=== PATIENT | male | born 1960 | race Caucasian/White ===

== ENCOUNTER 2023-01-04 07:56 | Day surgery (SDC) | payer BC, SELFPAY ==
[2023-01-04] VITALS (10 sets, daily range): BP systolic 107–156; BP diastolic 79–98; PULSE 58–86; RESP 12–16; TEMP 36.5–37.1; O2SAT 95–100; BMI 32.8
[2023-01-04] MEDS: LACTATED RINGERS 1000 ML 1,000 ML 100 ML IV (08:10)
--- NOTE | 2023-01-04 08:51 | SUR.PREOP ---
PT was here with patient and educated on mobility post surgery. Crutches given. Assessed for safety at home post surgery. Pt felt it was safe for PT to go home
--- NOTE | 2023-01-04 09:13 | SUR.PREOP ---
Covid test negative
[2023-01-04] MEDS: SODIUM CHLORIDE 0.9 % (FLUSH) 10 ML SYRINGE IVF (09:14)
[2023-01-04] MEDS: CEFAZOLIN 2 GM INJ IVP (11:21)
[2023-01-04] MEDS: BUPIVACAINE 0.25% 30 ML INJECTION (12:08)
--- NOTE | 2023-01-04 12:08 | PM.ORPRC ---
Procedure Note Date of procedure: 01/04/23 Procedure: PREOPERATIVE DIAGNOSIS: Left knee medial meniscus root tear, patellofemoral osteoarthritis POSTOPERATIVE DIAGNOSIS: Left knee medial meniscus root tear, patellofemoral osteoarthritis, complete tear of the ACL NAME OF OPERATION: Left knee arthroscopic ACL debridement, patellofemoral chondroplasty SURGEON: Joel Motta MD ASSEMBLER SEAT: MELCHOR Jaffe ANESTHESIA: Spinal ESTIMATED BLOOD LOSS: 0 mL COMPLICATIONS: None SPECIMENS: None DRAINS: None PREOPERATIVE ANTIBIOTICS: Ancef 2 gram INDICATIONS: The patient is a 62-year-old with a history of left knee medial pain. MRI scan is consistent with a medial meniscus root tear and end intrasubstance ganglion in the ACL, with patellofemoral joint osteoarthritis. Despite appropriate nonoperative management, including activity modification, antiinflammatories, dphc-tiv-rqrnaxo pain medication, bracing, physical therapy, and injections they continue to have pain and disability. Operative intervention was offered. The risks, benefits and expected outcomes were discussed in detail. These included but were not limited to: Infection, bleeding, injury to blood vessel or nerve, venous thromboembolism. All questions were answered to their satisfaction. PROCEDURE: Spinal anesthesia was administered. The patient was placed supine on the operating room table. The left lower extremity was prepped and draped in the usual sterile fashion. The limb was exsanguinated with the Bonilla bandage. The pneumatic tourniquet was inflated to 300 mmHg. A standard anterolateral portal was established. The arthroscope was introduced. The working portal was established anteromedially. Diagnostic arthroscopy was performed with findings as follows: The suprapatellar pouch is normal. Articular surface on the patella shows diffuse grade 1/2 change. Articular surface on the trochlea shows diffuse grade 3 change with a small area of grade 4 change medially, just proximal to the notch. The medial gutter is normal. The medial compartment shows diffuse grade 1/2 change on the medial femoral condyle, grade 1/2 change on the medial tibial plateau. The medial meniscus has a radial tear, just off the root, from the leading edge to the capsule, detaching it from the tibia. The notch shows the ACL to be completely torn and markedly degenerative. There are several unstable fragments of ligament flipped into the notch and into the lateral compartment. The lateral compartment shows normal articular cartilage on the lateral femoral condyle and lateral tibial plateau. The lateral meniscus is normal. The lateral gutter is normal. The ACL was debrided with the shaver. This results in complete resection of the ligament. Unstable chondral flaps on the femoral trochlea and patella were debrided with the shaver, taken to a stable base. Since a complete tear of the ACL was unanticipated, we elected not to proceed with medial meniscus root repair. Arthroscopic instruments were removed, the portal sites were Steri-Stripped closed, the knee was infiltrated with 30 mL of 0.25% Marcaine without epinephrine. A dry dressing was applied, the tourniquet was released. Sponge and needle counts were correct x 2. The patient tolerated the procedure well. There were no apparent complications. They were carefully transferred to the hospital bed and taken to the postanesthesia care unit in satisfactory condition. PLAN: The patient will be discharged to home. They may weightbear as tolerates. Range of motion will be unrestricted. They will follow up in the office next week for a wound check. I spoke with his sisters Gi and Amy postoperatively. I explained to them that complete tear of his ACL was unanticipated. I told them that he may have had another injury to his knee since the initial MRI scan. Given this finding, root repair without ACL reconstruction is doomed to failure. Since he signed his own consent, I was not able to proceed with ACL reconstruction under this anesthetic. Therefore, we elected to discontinue the case. We will allow him to return to activity as his knee will allow. If he has pain and/or functional instability we will consider ACL reconstruction with medial meniscus root repair. If his knee feels and functions well, then obviously no further intervention will be necessary.
--- NOTE | 2023-01-04 12:23 | W.ANESCHARGE ---
Anesthesia Charges Start Date/Time Anesthesia Start Date: 01/04/23 Anesthesia Start Time: 11:03 Stop Date/Time Anesthesia Stop Date: 01/04/23 Anesthesia Stop Time: 12:20
== END 2023-01-04 13:44 | disposition home or self-care (01) ==
PROVIDERS: PCP Family Medicine; Visit Provider Orthopaedic Surgery
PROC: (CPT 29882; principal; 2023-01-04 09:45)
DX: M23.232 Derangement of other medial meniscus due to old tear or injury, left knee (principal); M17.12 Unilateral primary osteoarthritis, left knee; S83.512A Sprain of anterior cruciate ligament of left knee, initial encounter
CPT/HCPCS: 29877; 01400; 97116; 97161; J0690; J2250; J2370; J2704; J3010; J3490; J7120

== ENCOUNTER 2023-03-19 14:57 | Outpatient (CLI) | payer BC, SELFPAY ==
--- NOTE | 2023-03-19 15:30 | MR_ITS ---
[address] [address] Phone:?[phone] Fax:?[phone] Referring Physician Information: Joel Motta M.D. [id number] [facility] [address] Phone:?[phone] Fax:?[phone] Patient:Adelaida Hutson D.O.B:?1960 Sex:?Male Phone:?[phone] [facility] MRN:?[id number] Exam Date:?03/19/2023 EXAM: MRI of the RIGHT KNEE, without contrast CLINICAL: Right knee instability. COMPARISONS: X-rays dated 11/02/2022. TECHNICAL: Multiplanar multisequence MRI of the right knee was obtained. SEDATION: None. CONTRAST: None. FINDINGS: Ligaments: ACL: Not visualized consistent with sequelae of prior disruption. PCL: Irregularity and increased signal consistent with sequelae of prior sprain injury, without complete disruption. MCL: Intact and unremarkable. LCL: Intact and unremarkable. Posterolateral corner: Popliteus, biceps femoris, iliotibial band, and the popliteofibular ligament appear intact. Posteromedial corner: Semimembranosus, pes anserine tendons and posterior oblique ligament appear intact. Extensor mechanism: Patellar tendon: Intact, without tendinopathy. Quadriceps tendon: Intact, without tendinopathy. Retinacula: Medial and lateral retinacula are intact. Fat pads: Unremarkable infrapatellar Hoffa's, quadriceps and prefemoral fat pads. Patellofemoral joint: Patella: Focal deep chondral fissure involving the peripheral medial patellar facet on axial series 4 image 10 with mild chondral thinning involving the medial patellar facet. Trochlea: Small segment of high-grade chondral loss with associated small osteophyte formation involving the inferior medial trochlea on sagittal series 6 image 19. Medial compartment: Medial meniscus: There is marked attenuation with high-grade complex tearing involving the posterior root extending into the posterior horn on sagittal series 6 images 18-20. Ill-defined complex tearing involves the remainder of the posterior horn extending into the body segment. Approximately 4 mm of medial extrusion of the peripheral body segment meniscus into the medial gutter. Medial cartilage: There is high-grade/full-thickness chondral loss involving the weightbearing extending into the posterior nonweightbearing medial femoral condyle with underlying subchondral reactive edema. High-grade/full-thickness chondral loss also involves the peripheral and posterior medial tibial plateau with underlying subchondral marrow edema. Lateral compartment: Lateral meniscus: There is complex tearing throughout the entire lateral meniscus with attenuation of the anterior and posterior root fibers. Lateral cartilage: Grade 2-3 chondral thinning involves the weightbearing lateral femoral condyle. There is high-grade/full-thickness chondral loss involving the posterior lateral tibial plateau adjacent to the posterior horn lateral meniscus on sagittal series 6 image 10-11 with mild adjacent subchondral marrow edema. High-grade/full-thickness loss also involves the medial aspect of the lateral tibial plateau with adjacent subchondral marrow edema. Knee joint: Effusion: Moderate right knee effusion. Intra-articular bodies:?Small intra-articular body is present within the posterior joint recess adjacent to the PCL measuring approximately 7 mm in size as seen on coronal series 8 image 21. Popliteal cyst: Moderate sized popliteal cyst is present with internal loose bodies present. Bones: No suspicious bone marrow signal alteration or fracture line. There is scattered degenerative peripheral spurring seen to involve all 3 compartments of the knee. IMPRESSION: 1. ACL is not visualized consistent with sequelae of prior disruption. Sequelae of prior sprain injury involving the PCL also noted. 2. Tearing of the medial and lateral menisci as above, with medial extrusion of the peripheral body segment medial meniscus into the medial gutter. 3. Tricompartmental chondromalacia/chondral loss as above. 4. Moderate joint effusion with a small intra-articular body within the posterior joint recess adjacent to the PCL. 5. Moderate-sized popliteal cyst with internal loose bodies. JCZ Electronically signed on 03/26/2023 10:11:00 AM by Fede Choi D.O.
== END 2023-03-19 14:58 | disposition home or self-care (01) ==
LOC: MRI 14:57
PROVIDERS: PCP Family Medicine; Visit Provider Orthopaedic Surgery
DX: M25.561 Pain in right knee (principal); M94.261 Chondromalacia, right knee; S83.281D Other tear of lateral meniscus, current injury, right knee, subsequent encounter; S83.221D Peripheral tear of medial meniscus, current injury, right knee, subsequent encounter; M25.461 Effusion, right knee; M71.21 Synovial cyst of popliteal space [Baker], right knee; M23.51 Chronic instability of knee, right knee
CPT/HCPCS: 73721

== ENCOUNTER 2023-05-31 12:52 | Outpatient (RCR) | payer BC, SELFPAY | END 2023-09-28 23:59 | disposition home or self-care (01) | PROVIDERS: PCP Family Medicine; Visit Provider Orthopaedic Surgery | DX: M17.11 Unilateral primary osteoarthritis, right knee (principal); M25.361 Other instability, right knee; Z51.89 Encounter for other specified aftercare; M25.561 Pain in right knee; M25.661 Stiffness of right knee, not elsewhere classified | CPT/HCPCS: 97110; 97161; 97530 ==

== ENCOUNTER 2023-06-13 06:11 | Day surgery (SDC) | payer BC, SELFPAY ==
[2023-06-13] VITALS (22 sets, daily range): BP systolic 95–141; BP diastolic 68–98; PULSE 59–80; RESP 12–18; TEMP 35.9–36.8; O2SAT 94–100; BMI 31.6
[2023-06-13] MEDS: ACETAMINOPHEN 500 MG TABLET 1000 MG PO ×3 (06:40→18:30)
[2023-06-13] MEDS: CELECOXIB 200 MG CAPSULE PO (06:40)
[2023-06-13] MEDS: OXYCODONE (CR) 10 MG TAB.ER.12H PO (06:40)
[2023-06-13] MEDS: LACTATED RINGERS 1000 ML 1,000 ML 100 ML IV ×2 (06:55→07:30)
[2023-06-13] MEDS: fentaNYL 100 MCG/2 ML inj IVP (07:25)
[2023-06-13] MEDS: MIDAZOLAM HCL 1 MG/ML inj IVP (07:25)
--- NOTE | 2023-06-13 07:32 | SUR.PREOP ---
TIME?OUT:?0725 PT/RN/MDA?VERIFICATION?OF?SURGICAL?SITE,?PROCEDURE,?AND?CONSENT OBTAINED?PRIOR?TO?INVASIVE?PROCEDURE.
[2023-06-13] MEDS: CEFAZOLIN 2 GM INJ IVP (07:52)
--- NOTE | 2023-06-13 09:00 | CRLHL7_ITS ---
For Patients: As a result of the Cures Act, medical imaging exams and procedure reports are released immediately into your electronic medical record. You may view this report before your referring provider. If you have questions, please contact your health care provider. Indication: POST OP TKA Technique: Two views right knee Findings/Impression: Hardware from a right total knee arthroplasty is in satisfactory position. Bone alignment is normal. No sign of acute fracture. Postop changes are within normal limits. Dictated by Mirza Maxwell MD @ 06/13/2023 11:02:39 AM (Electronically Signed)
--- NOTE | 2023-06-13 09:02 | PM.ORPRC ---
Procedure Note Date of procedure: 06/13/23 Procedure: PREOPERATIVE DIAGNOSIS: Right knee osteoarthritis POSTOPERATIVE DIAGNOSIS: Right knee osteoarthritis NAME OF OPERATION: Right total knee arthroplasty SURGEON: Joel Motta MD CANDY WRAPPING MACHINE OPERATOR: Sylvia Natarajan PA-C ANESTHESIA: Spinal ESTIMATED BLOOD LOSS: 0 mL COMPLICATIONS: None SPECIMENS: None DRAINS: None PREOPERATIVE ANTIBIOTICS: Ancef 2 grams IMPLANTS: 1. J&J Attune # 5 posterior stabilized femur 2. # 5 fixed-bearing tibia 3. # 5 posterior stabilized, 5 mm fixed-bearing polyethylene 4. 38 patella INDICATIONS: The patient is a 62-year-old with a longstanding history of severe, unrelenting right knee pain secondary to end-stage (grade IV) right knee osteoarthritis. Despite appropriate nonoperative management, including activity modification, anti-inflammatories, hldz-evf-xuhiruh pain medication, bracing, physical therapy, and injections they continue to have pain and disability. Operative intervention was offered. The risks, benefits and expected outcomes were discussed in detail. These included but were not limited to: Infection, bleeding, injury to blood vessel or nerve, venous thromboembolism. All questions were answered to their satisfaction. Use of an delinquent tax collection assistant was necessary throughout the case for patient positioning and safety, soft tissue retraction, and closure. PROCEDURE: Spinal anesthesia was administered. The patient was placed supine on the operating table. The delinquent tax collection assistant made sure the patient was positioned appropriately. The lower extremity was prepped and draped in the usual sterile fashion. The limb was exsanguinated with the Bonilla bandage. The pneumatic tourniquet was inflated to 300 mmHg. A standard anterior incision was made with the knee in flexion. Subcutaneous dissection was sharply taken through fascial layer #1. Full-thickness medial and lateral flaps were elevated. The delinquent tax collection assistant retracted the soft tissues and protected them throughout the case. A standard medial parapatellar approach was made. The patella was everted. The infrapatellar fat pad was preserved. The menisci and cruciate ligaments were sharply d?brided. Marginal osteophytes were d?brided with the rongeur. The drill was used to penetrate the femoral canal. The canal was aspirated and irrigated with pulse lavage. The intramedullary femoral guide was placed for a 5-degree valgus cut, removing 10 mm off the distal femur. The saw was used to make the cut. Whitesides line and the trans epicondylar axis were marked. The femoral sizing guide was pinned onto the distal femur. Three degrees of external rotation nicely parallels the transepicondylar axis. Pins were placed for posterior referencing. The four-in-one cutting guide was pinned onto the distal femur. The anterior, posterior, and chamfer cuts were made. The delinquent tax collection assistant protected the collateral ligaments. The box cutting guide was pinned. The box cuts were made. The boxed trial was placed and was an excellent fit. Drill holes for the lugs were made. Attention was then turned to the proximal tibia. The extramedullary tibial guide was placed for a neutral varus/valgus cut with 5 degrees of posterior slope, removing 2 mm based off the medial tibial surface. The delinquent tax collection assistant protected the collateral ligaments and the neurovascular bundle. The saw was used to make the cut. Trial components were placed. The knee was nicely balanced in both flexion and extension. The trial components were removed. The tray was placed in appropriate rotation, parallel to our tibial cutting pins. It was pinned by the delinquent tax collection assistant and the drill and the punch were used. The tray was removed. The punch was used again. We placed a bone plug in the femoral canal. Attention was then turned to the patella. [place] patellar thickness was 23 mm. The lobster claw resection guide was used with the 9.5 mm dick. The saw was used to make the cut. Drill holes were made by the delinquent tax collection assistant. The trial was placed and was an excellent fit. Cancellous surfaces were irrigated with pulse lavage and thoroughly dried by the delinquent tax collection assistant. We cemented the tibial component, then the femoral component. We impacted the 5 mm polyethylene onto the tibial tray. The knee was brought into full extension. We then cemented the patellar component. Excessive cement was removed. The cement was allowed to harden. The knee was taken through a range of motion and was found to be nicely balanced in both flexion and extension. The patella tracks centrally. The delinquent tax collection assistant did a three minute dilute Betadine solution soak. The delinquent tax collection assistant irrigated the wound with 3 liters of normal saline via pulse lavage. The delinquent tax collection assistant reapproximated the extensor mechanism with #1 Vicryl in an interrupted [id number] fashion. The delinquent tax collection assistant then ran the extensor mechanism with a #1 PDO Stratafix. The delinquent tax collection assistant closed the subcutaneous tissues with a 3-0 Stratafix and the skin with a running 3-0 Stratafix in a subcuticular fashion. Glue was used to seal the skin. The delinquent tax collection assistant placed a dry dressing, AMOR stocking, and Polar Care. Sponge and needle counts were correct x2. The patient tolerated the procedure well. There were no apparent complications. They were carefully transferred to the hospital bed and taken to the postanesthesia care unit in satisfactory condition. PLAN: The patient will be mobilized with physical therapy. Aspirin will be used for DVT prophylaxis. They will be discharged to home once medically appropriate.
--- NOTE | 2023-06-13 09:52 | W.ANESCHARGE ---
Anesthesia Charges Start Date/Time Anesthesia Start Date: 06/13/23 Anesthesia Start Time: 07:43 Stop Date/Time Anesthesia Stop Date: 06/13/23 Anesthesia Stop Time: 09:54
--- NOTE | 2023-06-13 10:07 | W.ANESCHARGE ---
Anesthesia Charges Start Date/Time Anesthesia Start Date: 06/13/23 Anesthesia Start Time: 07:43 Stop Date/Time Anesthesia Stop Date: 06/13/23 Anesthesia Stop Time: 09:54
--- NOTE | 2023-06-13 10:08 | P.NB_ITS ---
Nerve Block Nerve Block Time Seen by Provider: 07:29 Date Seen: 06/13/23 Type of block requested by surgeon for post-operative analgesia: adductor canal Side: right Time out performed: Yes Verification of patient name: Yes Verification of date of : Yes Site marking: site marked Name of person performing procedure: Magdaleno Continuous monitoring Was continuous monitoring of O2 sat, B/P, monitor car operator, recorded every 15 minutes?: Yes Procedure Checklist: sterile prep, needles and gloves Ultrasound guided. Images saved: Yes Medications given in 5ml increments after negative aspiration: Ropivicaine %: 0.5 mL: 20 Needle gauge: 20 Decadron (mg): 10 Precedex (mcg): 25 Patient tolerated procedure well: Yes Additional comments: Needle noted adjacent to nerve Block Charges Block Charge (with Pro Fee): Femoral Nerve Use of Ultrasound Machine for Block: Yes- US Guidance/pain block
--- NOTE | 2023-06-13 10:08 | P.NB_ITS ---
Nerve Block Nerve Block Time Seen by Provider: 07:29 Date Seen: 06/13/23 Type of block requested by surgeon for post-operative analgesia: geniculars Side: right Time out performed: Yes Verification of patient name: Yes Verification of date of : Yes Site marking: site marked Name of person performing procedure: Magdaleno Continuous monitoring Was continuous monitoring of O2 sat, B/P, telemetry monitor, recorded every 15 minutes?: Yes Procedure Checklist: sterile prep, needles and gloves Medications given in 5ml increments after negative aspiration: Ropivicaine %: 0.5 mL: 9 Needle gauge: 25 Patient tolerated procedure well: Yes Block Charges Block Charge (with Pro Fee): Genicular Nerve Block Use of Ultrasound Machine for Block: No
[2023-06-13] MEDS: HYDROmorphone 0.5 mg/0.5 ml inj IVP ×2 (11:36→13:13)
[2023-06-13] MEDS: OXYCODONE 5 MG TABLET PO ×3 (12:20→22:19)
[2023-06-13] MEDS: LACTATED RINGERS 1000 ML 1,000 ML 75 ML IV (12:22)
[2023-06-13] MEDS: CEFAZOLIN 2 GM in 0.9 % SODIUM CHLORIDE Mini-bag 100 ML IVPB ×2 (14:40→21:18)
[2023-06-13] MEDS: ONDANSETRON 2 MG/ML inj 4 MG IVP (15:04)
--- NOTE | 2023-06-13 15:23 | P.IMCN_ITS ---
Date of Consult Patient: Other Consult date: 06/13/23 Requesting Physician: Orthopedics Primary Care Provider: Jame Howe MD Consult Narrative Reason for consult: Status post right space TKA, assist with hypertension care Narrative: Valentino Hutson is a 62 year old man undergoes elective right total knee arthroplasty today without any complications. Trying to address the knee pain. Having some nausea and retching postop. Otherwise indicates is doing well. Review of Systems Status of ROS: Reports: 10 or more systems reviewed and unremarkable except as noted in History and below [facility] Medical History (Updated 06/13/23 @ 15:30 by Rio Duval MD) History of nausea and vomiting ?Z87.898 - Personal history of other specified conditions (ICD-10) Learning disorder ?F81.9 - Developmental disorder of scholastic skills, unspecified (ICD-10) Osteoarthritis of right knee ?M17.11 - Unilateral primary osteoarthritis, right knee (ICD-10) Tear of lateral meniscus of right knee ?S83.281A - Other tear of lateral meniscus, current injury, right knee, initial encounter (ICD-10) Tear of medial meniscus of right knee ?S83.241A - Other tear of medial meniscus, current injury, right knee, initial encounter (ICD-10) Tear of medial meniscus of left knee ?S83.242A - Other tear of medial meniscus, current injury, left knee, initial encounter (ICD-10) Sleep apnea ?G47.30 - Sleep apnea, unspecified (ICD-10) Hypertension ?I10 - Essential (primary) hypertension (ICD-10) Hyperlipidemia ?E78.5 - Hyperlipidemia, unspecified (ICD-10) Surgical History (Updated 06/13/23 @ 15:29 by Rio Duval MD) H/O arthroscopy of left knee (01/04/23) ?Z98.890 - Other specified postprocedural states (ICD-10) Family History (Updated 06/13/23 @ 15:22 by Rio Duval MD) Mother Diabetes Family/Other Myocardial infarction Social History (Updated 06/13/23 @ 15:20 by Rio Duval MD) Narrative: Single. Lives with a friend. Has worked part-time at the [employer] for the past 23 years. His sister helps him with his finances. Former smoker. Occasionally will drink an alcoholic beverage. What is your current living situation?: I presently have a place to live Problems where you live: no known problems In the past 12 months, utilities in danger of being shut off: no In the past 12 mos, have been you worried that your food would run out before you had money to buy more?: never true In the past 12 mos, the food you bought just didn't last and you didn't have money to buy more?: never true Smoking Status: Former smoker What tobacco products do you use: cigarettes Smoking quit date/years: >15 years ago Do you use any of these nicotine containing products: None Second hand tobacco smoke exposure: No How often do you have a drink containing alcohol: 2-4 times a month Alcohol type: hard liquor How many standard drinks containing alcohol do you have on a typical day: 10 or more How often do you have six or more drinks on one occasion: Monthly AUDIT-C Alcohol total score: 8 Non-prescribed substance use: denies use Caffeine: No How often does anyone, including family, friends and others, physically hurt you : never How often does anyone, including family, friends and others, insult or talk down to you: never How often does anyone, including family, friends and others, threaten you with harm: never How often does anyone, including family, friends and others, scream or curse at you: never service: No Meds Home Medications and Allergies Home Medications Medication Instructions Recorded Confirmed Type amlodipine 5 mg tablet 5 mg PO DAILY 06/13/23 06/13/23 History simvastatin 20 mg tablet 20 mg PO QPM 06/13/23 06/13/23 History valsartan 80 1 tab PO DAILY 06/13/23 06/13/23 History mg-hydrochlorothiazide 12.5 mg tablet Allergies Allergy/AdvReac Type Severity Reaction Status Date / Time No Known Drug Allergies Allergy Verified 06/13/23 06:13 Exam Narrative: Exam Narrative: I examine him in his hospital room. Appears comfortable and in no acute distress. Vision and hearing are both grossly normal. Alert, oriented to self, place, time, situation. Friendly, cooperative. Mood and affect are congruent. Neck is supple. Midline trachea. No JVD or hepatojugular reflux. No carotid bruits. Lungs are clear to auscultation without wheezing, rhonchi, rales. Chest wall excursions are full. No CVA tenderness. Heart tones with regular rhythm, normal S1-S2, without murmur, gallop, or rub. PMI is not laterally displaced. Abdomen is mildly distended, with active bowel sounds, soft, nontender. Moves all 4 extremities already. No focal motor neurologic deficits. Const: Vital Signs, click to edit/add: Vital Signs - 24 hr 06/13/23 07:00 06/13/23 07:25 06/13/23 07:30 Temperature 98.2 F Pulse Rate 80 76 76 Pulse Rate [Left] Pulse Rate [Right] Respiratory Rate 16 16 14 Blood Pressure 141/95 H 137/87 110/82 Blood Pressure [Ri ght Arm] Pulse Oximetry 97 100 100 Oxygen Delivery Me thod Room Air Nasal Cannula Nasal Cannula Oxygen Flow Rate 2 2 06/13/23 07:35 06/13/23 09:50 06/13/23 09:55 Temperature 97.7 F Pulse Rate 66 71 65 Pulse Rate [Left] Pulse Rate [Right] Respiratory Rate 14 16 14 Blood Pressure 110/74 106/74 102/68 Blood Pressure [Ri ght Arm] Pulse Oximetry 97 95 95 Oxygen Delivery Me thod Nasal Cannula Room Air Oxygen Flow Rate 2 06/13/23 10:00 06/13/23 10:05 06/13/23 10:10 Temperature Pulse Rate 73 65 64 Pulse Rate [Left] Pulse Rate [Right] Respiratory Rate 12 14 12 Blood Pressure 105/72 104/71 108/71 Blood Pressure [Ri ght Arm] Pulse Oximetry 95 97 95 Oxygen Delivery Me thod Oxygen Flow Rate 06/13/23 10:15 06/13/23 10:20 06/13/23 10:25 Temperature 98.2 F 96.6 F L Pulse Rate 65 65 Pulse Rate [Left] Pulse Rate [Right] 68 Respiratory Rate 14 14 16 Blood Pressure 109/74 112/71 Blood Pressure [Ri ght Arm] 99/74 Pulse Oximetry 95 96 97 Oxygen Delivery Me thod Room Air Oxygen Flow Rate 06/13/23 10:25 06/13/23 10:45 06/13/23 11:00 Temperature 96.6 F L 96.7 F L 97.2 F L Pulse Rate 68 Pulse Rate [Left] 62 59 L Pulse Rate [Right] Respiratory Rate 16 16 16 Blood Pressure Blood Pressure [Ri ght Arm] 99/74 95/75 113/79 Pulse Oximetry 96 98 Oxygen Delivery Me thod Room Air Room Air Room Air Oxygen Flow Rate 06/13/23 11:15 06/13/23 11:30 06/13/23 12:00 Temperature 96.8 F L 97.0 F L 97.2 F L Pulse Rate Pulse Rate [Left] 63 68 70 Pulse Rate [Right] Respiratory Rate 16 16 16 Blood Pressure Blood Pressure [Ri ght Arm] 120/85 121/90 H 106/86 Pulse Oximetry 97 97 98 Oxygen Delivery Me thod Room Air Room Air Room Air Oxygen Flow Rate 06/13/23 12:30 06/13/23 13:30 Temperature 98.2 F Pulse Rate Pulse Rate [Left] 67 66 Pulse Rate [Right] Respiratory Rate 18 18 Blood Pressure Blood Pressure [Ri ght Arm] 102/98 H 97/68 Pulse Oximetry 94 94 Oxygen Delivery Me thod Room Air Room Air Oxygen Flow Rate Documenting provider has reviewed patient's vital signs: yes Assessment and Plan Assessment and plan (1) Osteoarthritis of right knee: Status: Acute (2) Status post total knee replacement, right: Status: Acute (3) Tear of medial meniscus of right knee: Status: Acute (4) Tear of lateral meniscus of right knee: Status: Acute (5) Right ACL tear: Status: Acute (6) Hypertension: Status: Acute (7) Postoperative nausea and vomiting: Problem comment: Antiemetics. IV fluids. Clear liquids. Will obtain flat and upright abdominal x-ray to assess for possible ileus or small-bowel obstruction. Status: Acute Plan 1. Reviewed impression with patient. 2. Patient agreeable to x-ray to assess for possible ileus versus small-bowel obstruction. 3. Hold antihypertensive medications for now given soft blood pressures. 4. Will follow with Orthopedic surgery while patient is in the hospital. 5. Agree with postoperative venous thromboembolism prophylaxis 6. Agree with perioperative antibiotic prophylaxis. 7. Completed hospitalist portion of hospital discharge. 8. Patient agreeable to above stated plans and recommendations.
--- NOTE | 2023-06-13 15:26 | PC.NURSE ---
Patient arrived at 1025 from PACU. VSS. Cryocuff to knee. Dressing CDI. Patient required PRN Dilaudid and Oxycodone for pain rated 7-10/10. Initially tolerated regular diet well, but had emesis of approximately 500cc after getting up to recliner with PT. Reported improved nausea after emesis. Patient back to bed after an hour being up in recliner and had another emesis of 800cc after ambulating back to bed. Zofran given and patient currently resting.
--- NOTE | 2023-06-13 15:33 | CRLHL7_ITS ---
For Patients: As a result of the Century Cures Act, medical imaging exams and procedure reports are released immediately into your electronic medical record. You may view this report before your referring provider. If you have questions, please contact your health care provider. Indication: post op nausea and vomiting Technique: Abdomen 2 view. Comparison: None. Findings: Bowel: Bowel pattern is normal. The amount of colonic stool is within normal limits. Other: No sign of free air. No sign of soft tissue mass. No suspicious calcifications. Osseous structures are unremarkable for age. Impression: Unremarkable abdomen. Dictated by Mirza Maxwell MD @ 06/14/2023 9:22:19 AM (Electronically Signed)
[2023-06-13] MEDS: SIMVASTATIN 20 MG TABLET PO (18:29)
--- NOTE | 2023-06-13 18:41 | PC.NURSE ---
Pt alert and oriented. Pt assist of one with walker and gait belt. Pt had no nausea/vomiting on shift (15-19). Pt tolerated regular diet. Pt had no complaints of pain.?
[2023-06-13] MEDS: SENNOSIDES 1 TAB TABLET 2 TAB PO (21:14)
[2023-06-13] MEDS: ASPIRIN 81 MG TABLET EC PO (21:14)
[2023-06-14 03:00] VITALS: BP 136/96; PULSE 90; RESP 20; TEMP 36.6; O2SAT 95
[2023-06-14] MEDS: ACETAMINOPHEN 500 MG TABLET 1000 MG PO (03:39)
[2023-06-14] MEDS: OXYCODONE 5 MG TABLET PO (03:39)
[2023-06-14 06:43] LABS: Basophils Percent Auto 0.1 % (0.0-3.0); Hematocrit 41.8 % (37.0-53.0); Hemoglobin* 14.1 gm/dL (13.5-17.5); Immature Granulocytes Pct Auto 0.2 %; Lymphocytes Percent Auto 9.3 % (20-44); Mean Corpuscular HGB Conc 34 gm/dL (32-36); Mean Corpuscular Hemoglobin 31 pg (26-34); Mean Corpuscular Volume 93 fL (80-100); Neutrophils Percent Auto 80.4 % (42.0-72.0); Platelet Count* 314 K/uL (140-440); RDW Coefficient of Variation % 11.9 % (11.5-15.5); Red Blood Count 4.51 m/uL (4.30-5.90); White Blood Count* 14.67 K/uL (4.50-11.00)
--- NOTE | 2023-06-14 06:48 | PC.NURSE ---
SHIFT NOTE 19-: Pt is A&O with a developmental delay, able to express his needs and calls appropriately. Dressing C/D/I, CMS intact, cryocuff in place. Pt given PRN Oxycodone for pain and reports relief. Up 1 assist and a walker and tolerates well. Denies SOB, CP, and N/V.
[2023-06-14 06:52] LABS: Slide Review Reflex No
[2023-06-14 07:00] VITALS: BP 127/93; PULSE 79; RESP 18; TEMP 36.6; O2SAT 98
[2023-06-14 07:03] LABS: Prothrombin Time 13.8 Seconds
[2023-06-14 07:04] LABS: Sodium* 136 mmol/L (135-149)
[2023-06-14 07:05] LABS: Potassium* 4.2 mmol/L (3.6-5.1)
[2023-06-14 07:07] LABS: Creatinine* 0.8 mg/dL (0.5-1.5); Est. Creatinine Clearance* 85.42; Estimated Glomerular Filt Rate 101 ml/min
[2023-06-14 07:08] LABS: Blood Urea Nitrogen* 15 mg/dL (7-30)
--- NOTE | 2023-06-14 07:42 | PM.ORPN ---
Subjective Subjective Time Seen by Provider: 07:42 Date Seen: 06/14/23 Principal diagnosis: Status post right knee replacement Interval history: Valentino is comfortable this morning. He had nausea and vomiting yesterday which has resolved. He is looking forward to having breakfast. He states he has been able to walk to the restroom without problems. Ortho Exam Narrative Exam Narrative: Alert and oriented x3. Patient is in no acute distress. Converses without labored breathing. Hearing is grossly intact. Ambulates with a walker. Examination the right knee shows the dressing is in place. There is no erythema or warmth or sign of infection. Mild effusion. Mild soft tissue edema about the right knee. Quad strength 4/5. CMS intact right lower extremity. Not able to straight leg raise. Bilateral calves are soft and nontender. Const Vital Signs, click to edit/add: Vital Signs - 24 hr 06/13/23 09:50 06/13/23 09:55 06/13/23 10:00 Temperature 97.7 F Pulse Rate 71 65 73 Pulse Rate [Apical] Pulse Rate [Left] Pulse Rate [Right] Respiratory Rate 16 14 12 Blood Pressure 106/74 102/68 105/72 Blood Pressure [Right Arm] Pulse Oximetry 95 95 95 Oxygen Delivery Method Room Air Oxygen Flow Rate 06/13/23 10:05 06/13/23 10:10 06/13/23 10:15 Temperature Pulse Rate 65 64 65 Pulse Rate [Apical] Pulse Rate [Left] Pulse Rate [Right] Respiratory Rate 14 12 14 Blood Pressure 104/71 108/71 109/74 Blood Pressure [Right Arm] Pulse Oximetry 97 95 95 Oxygen Delivery Method Oxygen Flow Rate 06/13/23 10:20 06/13/23 10:25 06/13/23 10:25 Temperature 98.2 F 96.6 F L 96.6 F L Pulse Rate 65 68 Pulse Rate [Apical] Pulse Rate [Left] Pulse Rate [Right] 68 Respiratory Rate 14 16 16 Blood Pressure 112/71 Blood Pressure [Right Arm] 99/74 99/74 Pulse Oximetry 96 97 Oxygen Delivery Method Room Air Room Air Oxygen Flow Rate 06/13/23 10:45 06/13/23 11:00 06/13/23 11:15 Temperature 96.7 F L 97.2 F L 96.8 F L Pulse Rate Pulse Rate [Apical] Pulse Rate [Left] 62 59 L 63 Pulse Rate [Right] Respiratory Rate 16 16 16 Blood Pressure Blood Pressure [Right Arm] 95/75 113/79 120/85 Pulse Oximetry 96 98 97 Oxygen Delivery Method Room Air Room Air Room Air Oxygen Flow Rate 06/13/23 11:30 06/13/23 12:00 06/13/23 12:30 Temperature 97.0 F L 97.2 F L 98.2 F Pulse Rate Pulse Rate [Apical] Pulse Rate [Left] 68 70 67 Pulse Rate [Right] Respiratory Rate 16 16 18 Blood Pressure Blood Pressure [Right Arm] 121/90 H 106/86 102/98 H Pulse Oximetry 97 98 94 Oxygen Delivery Method Room Air Room Air Room Air Oxygen Flow Rate 06/13/23 13:30 06/13/23 15:30 06/13/23 15:30 Temperature 97.3 F L Pulse Rate Pulse Rate [Apical] Pulse Rate [Left] 66 Pulse Rate [Right] 75 Respiratory Rate 18 18 Blood Pressure Blood Pressure [Right Arm] 97/68 114/87 Pulse Oximetry 94 97 97 Oxygen Delivery Method Room Air Room Air Oxygen Flow Rate 0 06/13/23 19:00 06/13/23 23:00 06/13/23 23:00 Temperature 97 F L Pulse Rate Pulse Rate [Apical] 72 78 Pulse Rate [Left] Pulse Rate [Right] Respiratory Rate 18 Blood Pressure Blood Pressure [Right Arm] 125/80 Pulse Oximetry 96 94 Oxygen Delivery Method Room Air Oxygen Flow Rate 0 06/13/23 23:00 06/14/23 03:00 Temperature 97.9 F 97.9 F Pulse Rate Pulse Rate [Apical] 72 90 Pulse Rate [Left] Pulse Rate [Right] Respiratory Rate 18 20 Blood Pressure Blood Pressure [Right Arm] 128/89 136/96 H Pulse Oximetry 95 95 Oxygen Delivery Method Room Air Room Air Oxygen Flow Rate 0 0 Assessment and Plan Assessment and plan (1) Status post total knee replacement, right: Problem details: 06/13/2023 Status: Acute Assessment and Plan: Plan for discharge is today to home if they meet discharge criteria. DVT prophylaxis includes aspirin 81 mg twice daily x1 month, Dirk stockings x1 month may remove for 1 hr per day, frequent ambulation Remove dressing in 1 week. Observe wound and phone Orthopedics with any questions or concerns Return to clinic in 1 week for a wound check Return to clinic in 6 weeks with surgeon Minimize narcotic use. Wean off and discontinue soon as possible. Activities as tolerated. No strenuous activity. Outpatient physical therapy as scheduled. Ice and elevate the operative extremity. No restriction on ice. Valentino is a motivated young man, expect that he will do very well. we discussed that when his block wears off, he may have 2-3 days of more significant pain. (2) Tear of medial meniscus of right knee: Status: Acute (3) Tear of lateral meniscus of right knee: Status: Acute (4) Right ACL tear: Status: Acute (5) Hypertension: Status: Acute (6) Postoperative nausea and vomiting: Problem details: Antiemetics. IV fluids. Clear liquids. Will obtain flat and upright abdominal x-ray to assess for possible ileus or small-bowel obstruction. Status: Acute
[2023-06-14] MEDS: SENNOSIDES 1 TAB TABLET 2 TAB PO (09:35)
[2023-06-14] MEDS: ASPIRIN 81 MG TABLET EC PO (09:35)
--- NOTE | 2023-06-14 10:47 | NUTR.NU ---
RDN for MD Consult. Hypertension Diet education provided. Sister present for the discussion as well. Discussed limiting saturated fat and sodium intake. Affirmed pt's practice of cooking from scratch. Handouts provided to support discussion. RDN contact information provided and encouraged patient to call with questions. RDN to follow up as needed.
--- NOTE | 2023-06-14 11:55 | PC.NURSE ---
Discharge: Patient alert and oriented, Dressing to right knee C/D/I. Denies N//SOB and pain. Patient tolerating a reg. diet. Patient discharged today at 1100 accompanied by sister, Discharge instructions given and signed. Patient verbalized understanding of instructions. Patient's IV removed intact. Belongings sheet also signed.
--- NOTE | 2023-06-17 10:04 | PC.SOCIAL ---
Per therapy, pt is in need of home care for PT. Completed face to face for home care orders. Contacted the following home care agencies for PT. 1. [facility]- Phone call to Mary Beth- Pt lives out of the service area so pt is declined. 2. [facility]- Phone call to intake in [facility]. Declined due to no availability. 3. [facility] Phone call to intake. Faxed referral to agency to review. Declined to accept pt. 4. [facility]- Phone call to intake [phone]. Faxed referral to [phone]. Follow up phone call to [facility]. They are verifying insurance coverage and will call social work back with a determination. 5. [facility] Phone call to intake at [phone]. They will review. Faxed referral to [phone]. 6. [facility]- Phone call to [phone]. They are full and closing. Not accepting new referrals. 7. [facility]- Phone call to intake at [phone]. They don't offer PT, so declined referral. 8. [facility]- Phone call to intake at [phone]. They will review referral. Faxed referral to [phone]. Phone call to pt to discuss referral. Pt is staying with his sister at [address] [place] [address] in [place]. Pt has a sample case porter for MA through [facility] and her name is Reema. Pt is fine with this worker calling his sample case porter. Informed pt that this worker will update when a home care is located. Left a voicemail with [facility] at [phone]. Social work will continue to follow up as needed.
--- NOTE | 2023-06-17 15:10 | PC.SOCIAL ---
Received a voicemail from [facility] and they are declining pt for home care services. Phone call to [facility] at [phone]. Spoke to bridge maintenance worker and they believe they can accept pt. Packet was not received so re-faxed referral packet to [phone]. Social work will follow up as needed.
--- NOTE | 2023-06-18 13:51 | PC.SOCIAL ---
Received a phone call back from [facility] at [phone]. They will accept pt for PT services. PT tried to schedule today, however, pt was not available for an appointment until Saturday. PT will open for services on Thursday 06/21. Phone call to pt to follow up on locating home health care. Pt does not have any further questions.
== END 2023-06-14 11:00 | disposition home or self-care (01) ==
LOC: OR 06:12 → MEDSURG 06:15
PROVIDERS: PCP Family Medicine; Visit Provider Orthopaedic Surgery
PROC: (CPT 27447; principal; 2023-06-13 07:45)
DX: M17.11 Unilateral primary osteoarthritis, right knee (principal); G89.18 Other acute postprocedural pain; I10 Essential (primary) hypertension; G47.30 Sleep apnea, unspecified; R11.2 Nausea with vomiting, unspecified; S83.241A Other tear of medial meniscus, current injury, right knee, initial encounter; S83.511A Sprain of anterior cruciate ligament of right knee, initial encounter; S83.281A Other tear of lateral meniscus, current injury, right knee, initial encounter
CPT/HCPCS: 27447; 01402; 36415; 64447; 64454; 73560; 74019; 76942; 82565; 84132; 84295; 84520; 85025; 85610; 97110; 97116; 97161; 97165; 97530; 97535; A9270; C1776; J0690; J1170; J2250; J2371; J2405; J2704; J3010; J7120